=== PATIENT | female | born 1955 | race Caucasian/White ===

== ENCOUNTER 2019-06-08 09:43 | Day surgery (SDC) | payer OTHER ==
[~2019-06-08] VITALS: Ht 149.9 cm; Wt 68.9 kg
[2019-06-08] MEDS ORDERED: LIDOCAINE 2% 100 MG/5 ML UJET TP ONE (11:39)
[2019-06-08] MEDS ORDERED: fentaNYL 0.05 MG/ML VIAL ONE (11:39)
== END 2019-06-08 12:25 | disposition home or self-care (01) ==
LOC: MDS 09:43 → MMU 09:44 → MDS 12:25
PROVIDERS: ATTEND Internal Medicine Gastroenterology
DX: Z12.11 Encounter for screening for malignant neoplasm of colon (principal); I10 Essential (primary) hypertension; E66.9 Obesity, unspecified; Z96.653 Presence of artificial knee joint, bilateral; Z79.899 Other long term (current) drug therapy; Z68.31 Body mass index [BMI] 31.0-31.9, adult
CPT/HCPCS: 45378; J3010